=== PATIENT | male | born 1960 | race African-American/Black ===

== ENCOUNTER 2020-09-12 17:38 | Outpatient (CLI) | payer BC | END 2020-09-12 17:39 | disposition home or self-care (01) | LOC: MADRAD 17:38 | DX: Z11.1 Encounter for screening for respiratory tuberculosis (principal) | CPT/HCPCS: 71046 ==

== ENCOUNTER 2024-02-09 09:03 | Outpatient (CLI) | payer BC ==
[~2024-02-09 09:03] MED LIST: Iopamidol 370 76% 100 ML VIAL ONE
== END 2024-02-09 09:04 | disposition home or self-care (01) ==
LOC: MADLAB 09:03
PROVIDERS: ATTEND Internal Medicine Gastroenterology
DX: I10 Essential (primary) hypertension (principal); R10.84 Generalized abdominal pain; R10.13 Epigastric pain; N40.0 Benign prostatic hyperplasia without lower urinary tract symptoms
CPT/HCPCS: 36415; 74160; 82565; Q9967